=== PATIENT | male | born 1960 | race Caucasian/White ===

== ENCOUNTER 2019-04-16 15:42 | Emergency (ER) | payer OTHER ==
[~2019-04-16] VITALS: Ht 180.3 cm; Wt 63.6 kg
[2019-04-16 16:01] VITALS: Ht 180.3 cm; Wt 63.6 kg
[2019-04-16] MEDS ORDERED: LEVOFLOXACIN500 MG PO (20:03)
[2019-04-16 20:48] VITALS: BP 144/73
== END 2019-04-16 20:49 | disposition home or self-care (01) ==
LOC: D.ER 15:42
DX: N45.1 Epididymitis (principal)